=== PATIENT | male | born 2005 | race Caucasian/White ===

== ENCOUNTER 2025-03-07 20:38 | Inpatient (IN) | payer SELFPAY ==
[2025-03-07] VITALS (17 sets, daily range): BP systolic 75–126; BP diastolic 37–66; PULSE 40–73; RESP 13–27; TEMP 36.9–37.2; O2SAT 92–100; BMI 22.1
[2025-03-07] MEDS: SODIUM CHLORIDE 0.9% 1000 ML 1,000 ML 999 ML IV ×4 (20:40→22:35)
[2025-03-07] MEDS: DEXTROSE 50%-WATER INJ 50 ML SYRINGE IVP (20:42)
--- NOTE | 2025-03-07 20:42 | XR_ITS ---
Examination: AP chest single view Technique one AP portable semiupright chest single view Indications: Seizure today. Findings: Normal heart size. No aspiration pneumonia. Osseous structures are intact. Impression: No aspiration pneumonia
--- NOTE | 2025-03-07 20:42 | EKG_ITS ---
[facility] Test Date: 2025-03-07 Pat Name: JAKE MONTOYA Department: Room: - Gender: Male Lan Specialist: : 2005 Requested By: Arya Crespo Order Number: [id number] Reading MD: Arya Crespo Measurements Intervals [place] Rate: 56 P: 62 NM: 138 QRS: 73 QRSD: 79 T: 49 QT: 401 QTc: 390 Interpretive Statements SINUS BRADYCARDIA No previous ECG available for comparison /store/S0/[id number]/ecg/[id number].pdf
--- NOTE | 2025-03-07 20:48 | XR_ITS ---
Examination: CT brain head without contrast. 2-D sagittal coronal reconstructions Date and time of exam:March 07, TE thousand 25, 2116 hrs., Comparison September 02, 2017 Indications: Seizure today CTDI: vol (mGy):51.80 DLP: (mGycm):1061 Technique: Multiple CT axial sections of the brain have been obtained, 5 mm slice thickness. Contrast has not been administered. 2-D sagittal, coronal reconstructions have been obtained Low dose protocols were performed. One or more of the following dose reduction techniques were used; automated exposure control, adjustment of the mA and/or KV according to patient size, use of iterative reconstruction technique. Findings: No significant ventricular enlargement. Intra-axial or extra-axial hemorrhage density is not seen. No mass effect or midline shift Basal cisterns are not remarkable. Fourth ventricle is midline. Cranial vault intact. Impression: Negative for acute hemorrhage, mass effect or midline shift Consider brain MRI follow-up, pre and postcontrast, seizure protocol
[2025-03-07] MEDS: levETIRAcetam INJ 100 MG/ML VIAL 5ML 2000 MG IVP (20:53)
[2025-03-07] MEDS: ONDANSETRON INJ 2 MG/ML INJ 2 ML 4 MG IVP (20:53)
[2025-03-07 20:56] LABS: Collection Type, Urine Clean Catch; Squamous Epithelial Cell,Urine 0 /hpf (0-5)
[2025-03-07 20:58] LABS: Base Excess, Venous -4 (-3-3); O2 Saturation, Venous 89 % (96-97); PCO2, Venous 40 mmHg (36-56); PO2, Venous 58 mmHg (15-58); pH, Venous 7.34 (7.33-7.66)
--- NOTE | 2025-03-07 20:59 | PD.EDSEIZ ---
ED Seizures RME/HPI General Chief Complaint: Seizure Stated Complaint: SEIZURES Time Seen by Provider: 03/07/25 20:42 Arrival date/time: 03/07/25 20:38 RME / HPI RME / HPI Narrative: DR. CURTIS MAIN ED EVALUATION: 19 y/o male with no significant past medical history was admitted to hospital on 03/07/2025 after coming to the ED with chief complaints of witnessed seizures brought in by ambulance. Patient was postictal, tired and lethargic upon arrival, A&O x 3, significantly hypertensive BP 78/37, heart rate in low 30s, pads placed patient was given 3 L bolus wide open, blood pressure improved, patient at bedside denied any substance use/overdose however due to high clinical suspicion was given Narcan, loading dose Keppra given as well. EKG at bedside showed sinus bradycardia, also noted on custom protection officer. Later in detail history obtained from patient's , patient somewhat contributed to the history as well. Patient was at his normal state of health today this evening, but per patient's she heard a loud thump and went to check on him and found that he had hit his head and was having seizure-like activity. She mentioned that he had 3 episodes of seizure-like activity with lapses of 10 seconds in between and these episodes lasted altogether around 3 to 4 minutes. stated that patient was nonresponsive though verbalized understanding of her words by blinking his eyes, per patient he does not remember anything last thing that he remembers was walking and then just waking up laying down. Patient strongly denies taking any controlled medications, did mention that he smokes marijuana here and there, but otherwise no other history of illicit drug use, also reports using cannabis cream. Patient's did mention that the patient was possibly taking Xanax sporadically for his anxiety which is prescribed to his family, but patient denied this. Patient mentioned that he has been nauseated and vomiting for around a year now, but his last vomiting episode was around 3 days ago. States that he may have some ulcer disease likely, but he has not seen a physician for this or has been properly diagnosed and has been taking [id number] Pepcid. Per patient he has never had any episodes of seizures before. Patient denied having any suicidal or homicidal ideation at this time. Related Data Home Medications ?Medication ?Instructions ?Recorded ?Confirmed No Known Home Medications 09/02/17 03/08/25 Allergies Allergy/AdvReac Type Severity Reaction Status Date / Time No Known Allergies Allergy Verified 03/07/25 20:46 Review of Systems Review of Systems Systems Reviewed: All systems reviewed, normal except as documented Past Medical History Past Medical History PSYCHO/SOCIAL: Positive Recreational Drug Use Social History SMOKING STATUS: Current every day smoker Past Medical History Comments PMH COMMENT: PMH: None Surgical Hx: Facial reconstruction, cholecystectomy Social Hx: Admits smoking marijuana, denies any other illicit drugs (UTOX was positive for benzodiazepines), admits social drinking ED Exam Narrative Physical exam: GEN. APPEARANCE: The patient is alert awake oriented X-3 in no distress, lying down comfortably, does not look ill/toxic. Patient has good eye contact. Patient is cooperative. Appears lethargic/tired. VITALS: All vitals were reviewed and the pulse ox is 97% on room air which is normal according to my interpretation. HEENT: Normocephalic, atraumatic. Pupils are equal and reactive. Oral mucosa is moist. Patent Nares NECK: Supple, nontender, no thyromegaly, no meningismus, no JVD, no step offs CHEST: Symmetrical, atraumatic, and with equal expansion , Nontender on palpation no deformity and no crepitus. CARDIOVASCULAR: Heart bradycardic rhythm no murmur or gallop rub or extra beats. LUNGS: Clear to auscultation bilaterally with symmetrical chest rise. No laboring tachypnea or wheezing. No intercostal subcostal retraction. No rales and no rhonchi. ABDOMEN: Soft, flat, nontender to palpation, no guarding or rebound tenderness. There are no abnormal masses palpated. Active and normal bowel sounds. EXTREMITIES: Nontender. No edema. No cyanosis. Patient is able to move all 4 extremities well, with full ROM and good CSM. SKIN: Clammy and cool to touch, no jaundice or rashes noted. MUSCULOSKELETAL: No lubar or midline bony tenderness. There is no CVA tenderness. No paraspinal muscle spasm or tenderness. NEURO: Patient is MAYNARD x 4, Cranial nerves II through XII grossly intact. There is no focal neurologic deficits noted. GCS is 15, PNS and RADIOLOGY DIRECTOR appear grossly intact. PSYCHIATRIC: Patient is in normal mood and affect, cooperative, no SI or HI or hallucinations. Course Quality Measures none Orders Category Date Time Status Apply Pacer Pads NOW Care 03/07/25 20:44 Completed Bedside Blood Glucose NOW Care 03/07/25 20:52 Active Bedside COVID-19 Antigen Test NOW Care 03/07/25 20:40 Active Bedside Influenza A&B Antigen Test NOW Care 03/07/25 20:40 Completed COVID-19 Screening Questionnaire NOW Care 03/07/25 22:20 Active Filing And Polishing Supervisor Q4H START 00 Care 03/07/25 20:44 Active Catheter [Urinary Catheter] QS Care 03/07/25 20:43 Completed Decision to Admit X1 Care 03/07/25 22:20 Completed EKG (ED ONLY) *Do not use* NOW Care 03/07/25 20:42 Completed EKG (ED ONLY) *Do not use* NOW Care 03/07/25 22:19 Completed Saline [Insert IV] NOW Care 03/07/25 20:[address] head/brain wo con Stat Exams 03/07/25 20:48 Completed EKG (ED Only) Stat Exams 03/07/25 20:42 Draft EKG (ED Only) Stat Exams 03/07/25 22:19 Ordered XR chest 1V portable Stat Exams 03/07/25 20:42 Completed Acetaminophen Stat Lab 03/07/25 20:42 Completed Alcohol, Blood Medical Stat Lab 03/07/25 20:42 Completed BNP [B-Type Natriuretic Peptide] Stat Lab 03/07/25 20:42 Completed Beta Hydroxybutyrate Stat Lab 03/07/25 20:42 Completed Bilirubin,Direct Stat Lab 03/07/25 20:42 Completed CBC Stat Lab 03/07/25 20:42 Completed CK [Creatine Kinase] Stat Lab 03/07/25 20:42 Completed CMP [Comprehensive Metabolic Panel] Stat Lab 03/07/25 20:42 Completed D-Dimer Stat Lab 03/07/25 20:42 Completed Drug Screen,Urine Stat Lab 03/07/25 20:42 Completed INR [Prothrombin Time with INR] Stat Lab 03/07/25 20:42 Completed Lactate (Lactic Acid) Stat Lab 03/07/25 20:42 Completed Magnesium Stat Lab 03/07/25 20:42 Completed PTT [Partial Thromboplastin Time] Stat Lab 03/07/25 20:42 Completed Phosphorous Stat Lab 03/07/25 20:42 Completed Procalcitonin Stat Lab 03/07/25 20:42 Completed Salicylate Stat Lab 03/07/25 20:42 Completed Thyroid Stimulating Hormone Stat Lab 03/07/25 20:42 Completed Troponin I Stat Lab 03/07/25 20:42 Completed Urinalysis, C/S if Indicated Stat Lab 03/07/25 20:42 Completed VBG [Venous Blood Gas] Stat Lab 03/07/25 20:42 Completed Dextrose 50% Syr [D50w Syringe Abboject] Med 03/07/25 20:40 Discontinued 50 ml .ROUTE .STK-MED ONE Dextrose 50% Syr [D50w Syringe Abboject] Med 03/07/25 20:40 Discontinued 50 ml IVP X1 ONE NALOXONE INJ (Vial) [Narcan Inj (Vial)] Med 03/07/25 20:41 Discontinued 2 mg IV X1 ONE Nicotine Patch [Nicoderm Patch] Med 03/07/25 21:53 Discontinued 21 mg TOP X1 ONE Ondansetron Inj [Zofran Inj] Med 03/07/25 20:40 Discontinued 4 mg IVP X1 ONE POTASSIUM CHL 10% Liq 15 ML Med 03/07/25 21:33 Discontinued 40 meq PO X1 ONE Sodium Chloride 0.9% 1000 ml [Ns] 1,000 ml Med 03/07/25 20:40 Discontinued IV 999 mls/hr Sodium Chloride 0.9% 1000 ml [Ns] 1,000 ml Med 03/07/25 20:41 Discontinued IV 999 mls/hr Sodium Chloride 0.9% 1000 ml [Ns] 1,000 ml Med 03/07/25 20:42 Discontinued IV 999 mls/hr Sodium Chloride 0.9% 1000 ml [Ns] 1,000 ml Med 03/07/25 22:20 Discontinued IV 999 mls/hr flumazeniL [Romazicon Inj] Med 03/07/25 21:38 Discontinued 0.2 mg IVP X1 ONE levETIRAcetam INJ [Keppra Inj] Med 03/07/25 20:41 Discontinued 2,000 mg IVP X1 ONE Vital Signs Vital signs: Vital Signs Blood Pressure 78/37 L 03/07/25 20:39 Pulse Oximetry (%) 100 09/20/25 20:39 Seizure MDM Narrative MDM Narrative:: # Sinus bradycardia # Seizure episode 19-year-old male with no past medical history presented with seizure episode, there is suspicion of drug overdose EKG showed sinus bradycardia, pads were placed no atropine or pacing Patient's blood pressure improved with IV fluids, continues to remain bradycardic Workup showed urine drug screen positive for benzodiazepine, her nursing patient was not given Versed enroute Otherwise workup benign, lactic acidosis noted 9.0 Case discussed with hospitalist group patient will be admitted. Case discussed with Attending Physician Dr. Jacque Curtis MD Internal Medicine PGY-2 Disclaimer: This note was dictated by speech recognition. Minor errors in breakfast attendant may be present due to voice recognition software. Patient data External records reviewed:: [facility] previous records (No recent ED records available for review.) and EMS form Clinical information provided by:: patient and EMS Social determinants that could affect healthcare access:: none Patient has the following chronic illnesses:: Recreational Drug Use How is presenting disease/condition affected by chronic disease/condition?: exacerbated by Evaluation data The following diagnostics were reviewed and interpreted by me:: lab results, radiology exam(s) and EKG tracing(s) Lab and/or radiology exams considered but not ordered:: None Interpretation Summary: RADIOLOGY Chest X-Ray: Findings: Normal heart size. No aspiration pneumonia. Osseous structures are intact. Impression: No aspiration pneumonia Medications / Prescriptions Medications or Prescriptions considered but not ordered:: None Medication administrations:: Medication Administration History Atropine Sulfate (Atropine Sulf Inj 1 Mg/Ml Vial) 1 mg IVP Q5MIN PRN PRN Reason: Symptomatic bradycardia, HR<45 Stop: 04/06/25 22:59 Dextrose (Dextrose 50%-Water Inj 50 Ml Syringe) 25 ml IV Q15MIN PRN PRN Reason: BG 50-70 responsive npo pt Stop: 04/07/25 03:13 Dextrose (Dextrose 50%-Water Inj 50 Ml Syringe) 50 ml IV Q15MIN PRN PRN Reason: BG <50 OR BG <70 & pt unresponsive Stop: 04/07/25 03:13 Glucagon (Glucagon Inj 1 Mg Vial) 1 mg IVP X1 PRN PRN Reason: HR<45 or BG<70 Stop: 04/07/25 02:36 Last Admin: 03/08/25 03:09 Dose: 1 mg Documented By: REINIER Comments: hr of 41 Glucagon (Glucagon Inj 1 Mg Vial) 1 mg IM Q15MIN PRN PRN Reason: BG <70, and no IV access Metoclopramide HCl (Metoclopramide Inj 5 Mg/Ml Vial 2 Ml) 10 mg IVP Q6H PRN; Protocol PRN Reason: NAUSEA OR VOMITING Stop: 04/06/25 22:47 Midazolam HCl (Midazolam Inj 1 Mg/Ml Vial 2 Ml) 1 mg IVP Q5MIN PRN PRN Reason: SEIZURES Stop: 03/12/25 22:56 Pantoprazole Sodium (Pantoprazole Inj 40 Mg Vial) 40 mg IVP QDAY MARI Stop: 04/06/25 22:54 Last Admin: 03/08/25 08:13 Dose: 40 mg Documented By: Admin: 03/07/25 23:51 Dose: 40 mg Documented By: REINIER Discontinued Medications Dextrose (Dextrose 50%-Water Inj 50 Ml Syringe) 50 ml IVP X1 ONE Stop: 03/07/25 20:41 Last Admin: 03/07/25 20:42 Dose: 50 ml Documented By: GALEN Dextrose (Dextrose 50%-Water Inj 50 Ml Syringe) Confirm Administered Dose 50 ml .ROUTE .STK-MED ONE Stop: 03/07/25 20:41 Last Admin: 03/07/25 21:00 Dose: Not Given Documented By: GALEN Non-Admin Reason: Override Medication Flumazenil (Flumazenil Inj 0.1 Mg/Ml Vial 10 Ml) 0.2 mg IVP X1 ONE Stop: 03/07/25 21:39 Last Admin: 03/07/25 21:43 Dose: 0.2 mg Documented By: BD Sodium Chloride (Ns) 1,000 mls @ 999 mls/hr IV .Q1H1M ONE Stop: 03/07/25 21:40 Last Infusion: 03/07/25 21:53 Dose: Infused Documented By: Admin: 03/07/25 20:40 Dose: 999 mls/hr Documented By: BD Sodium Chloride (Ns) 1,000 mls @ 999 mls/hr IV .Q1H1M ONE Stop: 03/07/25 21:41 Last Infusion: 03/07/25 21:41 Dose: Infused Documented By: Admin: 03/07/25 20:40 Dose: 999 mls/hr Documented By: BD Sodium Chloride (Ns) 1,000 mls @ 999 mls/hr IV .Q1H1M ONE Stop: 03/07/25 21:42 Last Infusion: 03/07/25 21:41 Dose: Infused Documented By: Admin: 03/07/25 21:06 Dose: 999 mls/hr Documented By: BD Sodium Chloride (Ns) 1,000 mls @ 999 mls/hr IV .Q1H1M ONE Stop: 03/07/25 23:20 Last Infusion: 03/07/25 23:54 Dose: Infused Documented By: Admin: 03/07/25 22:35 Dose: 999 mls/hr Documented By: BD Potassium Phosphate (Pot Phos 15 Mmol In Ns 250 Ml) 15 mmol in 250 mls @ 62.5 mls/hr IV Q4H MARI Stop: 03/08/25 06:53 Last Admin: 03/08/25 03:55 Dose: 62.5 mls/hr Documented By: Infusion: 03/08/25 03:51 Dose: Infused Documented By: Admin: 03/07/25 23:51 Dose: 62.5 mls/hr Documented By: REINIER Potassium Chloride (Kcl Ivpb) 10 meq in 100 mls @ 100 mls/hr IV Q1H MARI Stop: 03/08/25 01:07 Last Admin: 03/08/25 01:06 Dose: 100 mls/hr Documented By: Infusion: 03/08/25 00:51 Dose: Infused Documented By: Admin: 03/07/25 23:51 Dose: 100 mls/hr Documented By: [facility] Calcium Chloride 10 ml/ (Dextrose) 110 mls @ 110 mls/hr IV X1 ONE Stop: 03/08/25 01:26 Last Admin: 03/08/25 01:48 Dose: 110 mls/hr Documented By: [facility] Dextrose/Sodium Chloride (D5-Ns) 500 mls @ 125 mls/hr IV .Q4H MARI Stop: 04/07/25 00:59 Last Admin: 03/08/25 02:22 Dose: Not Given Documented By: [facility] Non-Admin Reason: Discontinued Dextrose (D5w) 500 mls @ 125 mls/hr IV .Q4H [facility] Stop: 04/07/25 01:44 Last Admin: 03/08/25 07:22 Dose: Not Given Documented By: EDGAR Non-Admin Reason: Cancelled by Provider Admin: 03/08/25 01:48 Dose: 125 mls/hr Documented By: REINIER Magnesium Sulfate (Magnesium Sulfate Ivpb) 2 gm in 50 mls @ 25 mls/hr IV X1 ONE Stop: 03/08/25 08:52 Last Admin: 03/08/25 08:10 Dose: 25 mls/hr Documented By: EDGAR Dextrose (D5w) 1,000 mls @ 125 mls/hr IV .Q8H [facility] Stop: 03/08/25 15:29 Last Infusion: 03/08/25 10:00 Dose: 0 mls/hr Documented By: Admin: 03/08/25 07:23 Dose: 125 mls/hr Documented By: EDGAR Levetiracetam (Levetiracetam Inj 100 Mg/Ml Vial 5ml) 2,000 mg IVP X1 ONE Stop: 03/07/25 20:42 Last Admin: 03/07/25 20:53 Dose: 2,000 mg Documented By: BD Midazolam HCl (Midazolam Inj 1 Mg/Ml Vial 2 Ml) 1 mg IVP Q1HR PRN PRN Reason: SEIZURES Stop: 03/12/25 22:56 Naloxone HCl (Naloxone Inj 0.4 Mg/Ml Vial) 2 mg IV X1 ONE Stop: 03/07/25 20:42 Last Admin: 03/07/25 20:53 Dose: 2 mg Documented By: GALEN Co-signed By: HENRRY Nicotine (Nicotine Patch 21 Mg/24 Hr Patch.Td24) 21 mg TOP X1 ONE Stop: 03/07/25 21:54 Last Admin: 03/07/25 22:20 Dose: 21 mg Documented By: BD Ondansetron HCl (Ondansetron Inj 2 Mg/Ml Inj 2 Ml) 4 mg IVP X1 ONE; Protocol Stop: 03/07/25 20:41 Last Admin: 03/07/25 20:53 Dose: 4 mg Documented By: BD Potassium Chloride (Potassium Chloride 10% 20 Meq/15 Ml Udc) 40 meq PO X1 ONE Stop: 03/07/25 21:34 Last Admin: 03/07/25 21:49 Dose: 40 meq Documented By: BD See above if any. Consultations Consultation(s) initiated? (list below): Yes Consultation #1 (Physician, Specialty, Details): Hospitalist made aware of the patient?s HPI, PMHx, lab and/or radiology results. Discussed treatment plan. Accepts patient for admission. Diagnosis Seizure Differential Diagnosis: intractable seizure disorder, focal seizure, generalized seizure, epileptic seizure and status epilepticus Most likely diagnosis given after review of the tests above:: Sinus bradycardia, Suspected drug overdose, Seizure Episode Admission Indicated Admission indicated?: indicated Explain why admission is indicated or not indicated:: Sinus bradycardia, Suspected drug overdose, Seizure Episode Admission Request Was there a request for admission?: Yes Admission Attestation Admission request attestation: Discussed case with Dr Abraham from Hospitalist service regarding admission. Discussed patients ED course, exam findings, labs, and radiology results. The Hospitalist agrees to accept the patient for admission. Disposition Plan Disposition Plan: Admit Discharge Plan Plan Patient Disposition: Admit Acute Care w/in Hospital Problem List Clinical Impression: Sinus bradycardia, Suspected drug overdose, Seizure
[2025-03-07 21:01] LABS: Basophils # (Auto) 0.1 Thou/mm3 (0.0-0.2); Basophils % (Auto) 1 % (0-2.5); Eosinophils # (Auto) 0.2 Thou/mm3 (0.0-0.5); Eosinophils % (Auto) 1 % (0-10); Hematocrit 41.6 % (41.0-53.0); Hemoglobin 14.8 g/dL (13.5-16.0); Immature Granulocytes Auto 0.03 Thou/mm3 (0.00-0.00); Lactate (Lactic Acid) 9.0 mMol/L (0.4-2.0); Lymphocytes # (Auto) 4.0 Thou/mm3 (1.0-4.8); Lymphocytes % (Auto) 32 % (10-50); Mean Corpuscular HGB Conc 35.6 g/dl (31.0-37.0); Mean Corpuscular Hemoglobin 31.6 pg (25.0-35.0); Mean Corpuscular Volume 89 fL (80-100); Monocytes # (Auto) 0.8 Thou/mm3 (0.0-0.8); Monocytes % (Auto) 7 % (0-12); Neutrophils # (Auto) 7.3 Thou/mm3 (1.8-7.7); Neutrophils % (Auto) 59 % (37-80); Nucleated Red Blood Cell # 0.00 Thou/mm3 (0.00-0.00); Nucleated Red Blood Cell % 0 /100 WBC (0); Platelet Count 270 Thou/mm3 (140-440); RDW Standard Deviation 41.1 fL (35.1-43.9); Red Blood Count 4.69 Miln/mm3 (4.50-5.90); White Blood Count 12.4 Thou/mm3 (3.8-10.6)
[2025-03-07 21:03] LABS: Bilirubin,Urine Negative (Negative); Blood,Urine Trace (Negative); Clarity,Urine Clear (Clear/Hazy); Color,Urine Lt-Yellow (Lt Yel-Yel); Culture Indicated,Urine Not Indicated; Glucose, Urine Negative (Negative); Ketones,Urine Negative (Negative); Leukocyte Esterase,Urine Negative (Negative); Nitrite,Urine Negative (Negative); PH,Urine 6.5 (5.0-7.0); Protein,Urine Negative (Neg - Trace); RBC,Urine 1 /hpf (0-3); Specific Gravity,Urine 1.019 (1.001-1.035); Urobilinogen,Urine Negative mg/dL (0.0-1.0); WBC,Urine < 1 /hpf (0-5)
[2025-03-07 21:05] LABS: Beta Hydroxybutyrate 0.1 mmol/L (<0.6)
--- NOTE | 2025-03-07 21:06 | PC.RT ---
abg attempted one time unsuccessful per pt refusing to let another RT or DR. panchal retry, abg was cancels per DR. Panchal.
[2025-03-07 21:18] LABS: INR 1.1 (0.9-1.3); Partial Thromboplastin Time 21.5 Seconds (22.0-36.0); Prothrombin Time 11.7 Seconds (9.0-12.2)
[2025-03-07 21:31] LABS: Acetaminophen < 2.0 mcg/mL (10.0-20.0); Alanine Aminotransferase 10 U/L (10-49); Albumin, Serum 5.0 gm/dL (3.5-5.0); Albumin/Globulin Ratio 2.2 (1.2-2.2); Alcohol, Blood Medical < 3.0 mg/dL (0-10.0); Alkaline Phosphatase 76 U/L (46-116); Amphetamine/Methamp Scrn,U Negative (Negative); Anion Gap 16 (7-16); Aspartate Amino Transferase 16 U/L (0-34); BUN/Creatinine Ratio 8 Ratio (12-20); Barbiturate Screen,Urine Negative (Negative); Benzodiazepines Screen,Urine Positive (Negative); Benzoylecgonine Screen, Ur Negative (Negative); Bilirubin,Direct 0.3 mg/dL (0.0-0.3); Bilirubin,Total 1.0 mg/dL (0.3-1.2); Blood Urea Nitrogen 7 mg/dL (9-23); Calcium 9.6 mg/dL (8.3-10.6); Calcium (Corrected) 9.6 mg/dL (8.5-10.1); Carbon Dioxide 21.7 mMol/L (20.0-31.0); Chloride 102 mMol/L (98-107); Creatine Kinase 81 U/L (34-171); Creatinine (Component) 0.9 mg/dL (0.6-1.3); Fentanyl Screen,Urine Negative (Negative); Globulin 2.3 gm/dL (2.3-3.5); Glucose 100 mg/dL (74-106); Magnesium 2.1 mg/dL (1.6-2.6); Opiate Screen,Urine Negative (Negative); Osmolality,Calculated 277 (275-295); Phosphorous 1.8 mg/dL (2.4-5.1); Potassium 3.0 mMol/L (3.4-5.1); Procalcitonin 0.04 ng/ml (0.0-0.49); Salicylate < 3.0 mg/dL; Sodium 140 mMol/L (136-145); THC Screen,Urine Positive (Negative); Thyroid Stimulating Hormone 4.13 uIU/mL (0.55-4.78); Total Protein 7.3 gm/dL (5.7-8.2); Troponin I < 0.002 ng/mL (0.0-0.045); eGFR > 60 See Note
--- NOTE | 2025-03-07 21:35 | PC.NURSE ---
Addendum entered by Julia Campos RN 03/09/25 00:56: charted in error checked with ems pt did not get medication in route. Original Note: pt is positive for benzo verified with ems hollie stated medication given in route
[2025-03-07] MEDS: FLUMAZENIL INJ 0.1 MG/ML VIAL 10 ML 0.2 MG IVP (21:43)
[2025-03-07 21:44] LABS: D-Dimer < 250 ng/mL (<600)
[2025-03-07 21:45] LABS: B-Type Natriuretic Peptide 22 pg/mL (0-100)
[2025-03-07] MEDS: POTASSIUM CHLORIDE 10% 20 MEQ/15 ML UDC 40 MEQ PO (21:49)
[2025-03-07] MEDS: NICOTINE PATCH 21 MG/24 HR PATCH.TD24 TOP (22:20)
--- NOTE | 2025-03-07 23:04 | ESHP_ITS ---
Documentation for date of: 03/07/25 HPI History of Present Illness Chief complaint: Seizure like activity History of present illness: 19-year-old male with no relevant past medical history was admitted to hospital on 03/07/2025 after coming to the ED with chief complaints of witnessed seizures brought in by ambulance. Patient was postictal upon arrival and patient is was at bedside help provide history and upon assessment patient was also able to provide some history. Patient was at his normal state of health today this evening, but per patient's she heard a loud thump and went to check on him and found that he had hit his head and was having seizure-like activity. She mentioned that he had 3 episodes of seizure-like activity with lapses of 10 seconds in between and these episodes lasted altogether around 3 to 4 minutes. Patient's stated that he was also confused after waking up, but that she had to do a sternal rub in order to wake him up as he was not breathing adequately and he was a little bit purpleish in his lips. Per patient he does not remember anything last thing that he remembers was walking and then just waking up laying down. Patient denied taking any controlled medications, did not mention that he smokes marijuana here and there, but otherwise no other history of illicit drug use. Patient's did mention that the patient was taking Xanax sporadically for his anxiety, but patient denied this. Patient's UTOX did come back positive for benzodiazepines. He mentioned that he has been under a lot of stress and that lately he has not been taking care of himself and has not been eating well. He mentioned that he has been nauseated and vomiting for around a year now, but his last vomiting episode was around 3 days ago. States that he may have some ulcer disease likely, but he has not seen a physician for this or has been properly diagnosed and has been taking [id number] Pepcid. Per patient he has never had any episodes of seizures before. Patient denied having any suicidal or homicidal ideation at this time. He stated that he did not have the guts, but also denied ever thinking about harming himself. Patient was bradycardic while en route to the ED and in the ED with a heart rate in the 30s, but was not given any atropine at any time. Patient also did not have any other further seizure-like tearing and was not giving any benzodiazepines. ED course: Initially came in bradycardic and hypotensive, but afebrile. Initial labs were relevant for leukocytosis likely reactive, VBG WNL, hypokalemia, lactic acidosis, hypophosphatemia, and UTOX was positive for benzodiazepines and marijuana. Initial head CT was unremarkable and chest x-ray was also unremarkable. Patient did have an EKG which showed sinus bradycardia. Got 4 L of IV fluids in the ED as well as flumenazil 0.2 mg x 1 on loading dose of Keppra and naloxone x 1. Patient was also hypoglycemic requiring dextrose x 1 PMH: None Surgical Hx: Facial reconstruction, cholecystectomy Social Hx: Admits smoking marijuana, denies any other illicit drugs (UTOX was positive for benzodiazepines), admits social drinking Review of Systems Review of Systems Narrative Review of Systems: Constitutional: Denies sweats, Denies weight loss/gain, Denies fever, Denies chills. HEENT: Denies hearing loss, Denies ear pain, Denies postnasal drip, Denies double vision, Denies blurry vision. Respiratory: Denies shortness of breath, Denies cough, Denies wheezing. Cardiovascular: Denies chest pain, Denies palpitations, Denies sudden loss of consciousness. GI: Denies blood in stool, Admits constipation, Denies abdominal pain, Denies difficulty swallowing, Admits nausea and vomit. : Denies urinary incontinence, Denies pain while urinating, Denies increased urinary frequency. MSK: Denies joint pain, Denies joint swelling, Denies numbness. Skin: Denies rash, Denies itching, Denies easy bruising. Neuro: Denies headaches, Denies dizziness, Admits seizures. Past Medical History Past Medical History Comments PMH COMMENT: PMH: None Surgical Hx: Facial reconstruction, cholecystectomy Social Hx: Admits smoking marijuana, denies any other illicit drugs (UTOX was positive for benzodiazepines), admits social drinking Exam Vital Signs Temp Pulse Resp BP Pulse Ox O2 Del Method O2 Flow Rate 98.9 F 60 22 H 107/61 97 Room Air 5 03/07/25 22:00 03/07/25 22:30 03/07/25 22:30 03/07/25 22:30 03/07/25 22:30 03/07/25 22:00 03/07/25 20:44 Narrative Exam Gen: A&O X 3, NAD tired appearing HEENT: NCAT, EOMI, Pupils reactive MARY, but dilated, not icteric. External ears normal. No rhinorrhea. Dry mucous membranes. Neck: Supple, full range of motion, no observable masses, No meningeal sign. Lungs: No Respiratory distress, clear bilateral. CV: bradycardic, no murmurs appreciated Abdomen: Soft, nondistended, No rebound tenderness. MSK: No joint swelling, no redness, peripheral pulses presents, lumbar with no edema. Skin: No rashes, petechiae, lesions. Neuro: No focal neurological deficits appreciated, sensory and motor intact. Psych: Cooperative Results: Labs 03/08/25 13:51 03/08/25 05:00 Labs: Short CBC 03/07/25 Range/Units 20:42 WBC 12.4 H (3.8-10.6) Thou/mm3 Hgb 14.8 (13.5-16.0) g/dL Hct 41.6 (41.0-53.0) % Plt Count 270 (140-440) Thou/mm3 BMP 03/07/25 20:42 Sodium 140 Potassium 3.0 L Chloride 102 Carbon Dioxide 21.7 BUN 7 L Creatinine 0.9 Glucose 100 Calcium 9.6 Cardiac Enzymes 03/07/25 Range/Units 20:42 Total Creatine Kinase 81 (34-171) U/L Troponin I < 0.002 (0.0-0.045) ng/mL Liver Function 03/07/25 Range/Units 20:42 Total Bilirubin 1.0 (0.3-1.2) mg/dL Direct Bilirubin 0.3 (0.0-0.3) mg/dL AST 16 (0-34) U/L ALT 10 (10-49) U/L Alkaline Phosphatase 76 (46-116) U/L Albumin 5.0 (3.5-5.0) gm/dL Urine 03/07/25 Range/Units 20:42 Urine Color Lt-Yellow (Lt Yel-Yel) Urine Clarity Clear (Clear/Hazy) Urine pH 6.5 (5.0-7.0) Ur Specific [place] 1.019 (1.001-1.035) Urine Protein Negative (Neg - Trace) Urine Glucose (UA) Negative (Negative) ABG Interpretation ABG results: 03/07/25 20:42 VBG pH 7.34 VBG pCO2 40 VBG pO2 58 VBG Base Excess -4 L Quality Measures Quality Measures VTE prophylaxis Medications Home Medications and Allergies Home Medications ?Medication ?Instructions ?Recorded ?Confirmed ?Type No Known Home Medications 09/02/1702/17 History Allergies Allergy/AdvReac Type Severity Reaction Status Date / Time No Known Allergies Allergy Verified 03/07/25 20:46 Visit Medications Atropine Sulfate (Atropine Sulf Inj 1 Mg/Ml Vial) 1 mg IVP Q5MIN PRN PRN Reason: Symptomatic bradycardia, HR<45 Stop: 04/06/25 22:59 Sodium Chloride (Ns) 1,000 mls @ 999 mls/hr IV .Q1H1M ONE Stop: 03/07/25 23:20 Last Admin: 03/07/25 22:35 Dose: 999 mls/hr Potassium Phosphate (Pot Phos 15 Mmol In Ns 250 Ml) 15 mmol in 250 mls @ 62.5 mls/hr IV Q4H MARI Stop: 03/08/25 06:53 Metoclopramide HCl (Metoclopramide Inj 5 Mg/Ml Vial 2 Ml) 10 mg IVP Q6H PRN; Protocol PRN Reason: NAUSEA OR VOMITING Stop: 04/06/25 22:47 Midazolam HCl (Midazolam Inj 1 Mg/Ml Vial 2 Ml) 1 mg IVP Q5MIN PRN PRN Reason: SEIZURES Stop: 03/12/25 22:56 Pantoprazole Sodium (Pantoprazole Inj 40 Mg Vial) 40 mg IVP QDAY MARI Stop: 04/06/25 22:54 Discontinued Medications Dextrose (Dextrose 50%-Water Inj 50 Ml Syringe) 50 ml IVP X1 ONE Stop: 03/07/25 20:41 Last Admin: 03/07/25 20:42 Dose: 50 ml Flumazenil (Flumazenil Inj 0.1 Mg/Ml Vial 10 Ml) 0.2 mg IVP X1 ONE Stop: 03/07/25 21:39 Last Admin: 03/07/25 21:43 Dose: 0.2 mg Sodium Chloride (Ns) 1,000 mls @ 999 mls/hr IV .Q1H1M ONE Stop: 03/07/25 21:40 Last Infusion: 03/07/25 21:53 Dose: Infused Sodium Chloride (Ns) 1,000 mls @ 999 mls/hr IV .Q1H1M ONE Stop: 03/07/25 21:41 Last Infusion: 03/07/25 21:41 Dose: Infused Sodium Chloride (Ns) 1,000 mls @ 999 mls/hr IV .Q1H1M ONE Stop: 03/07/25 21:42 Last Infusion: 03/07/25 21:41 Dose: Infused Levetiracetam (Levetiracetam Inj 100 Mg/Ml Vial 5ml) 2,000 mg IVP X1 ONE Stop: 03/07/25 20:42 Last Admin: 03/07/25 20:53 Dose: 2,000 mg Midazolam HCl (Midazolam Inj 1 Mg/Ml Vial 2 Ml) 1 mg IVP Q1HR PRN PRN Reason: SEIZURES Stop: 03/12/25 22:56 Naloxone HCl (Naloxone Inj 0.4 Mg/Ml Vial) 2 mg IV X1 ONE Stop: 03/07/25 20:42 Last Admin: 03/07/25 20:53 Dose: 2 mg Nicotine (Nicotine Patch 21 Mg/24 Hr Patch.Td24) 21 mg TOP X1 ONE Stop: 03/07/25 21:54 Last Admin: 03/07/25 22:20 Dose: 21 mg Ondansetron HCl (Ondansetron Inj 2 Mg/Ml Inj 2 Ml) 4 mg IVP X1 ONE; Protocol Stop: 03/07/25 20:41 Last Admin: 03/07/25 20:53 Dose: 4 mg Potassium Chloride (Potassium Chloride 10% 20 Meq/15 Ml Udc) 40 meq PO X1 ONE Stop: 03/07/25 21:34 Last Admin: 03/07/25 21:49 Dose: 40 meq Assessment & Plan Plan 19-year-old male with no relevant past medical history was admitted to hospital on 03/07/2025 for seizure-like activity. #Seizure-like activity #Electrolyte imbalance #Hypokalemia #Hypophosphatemia #Lactic acidosis #Beta abby overdose? #Benzodiazepine Overdose? Patient came in initially with witnessed episodes of seizure-like activity by . Patient with his postictal upon arrival, on my assessment was able to provide some history and was AO x 3. Patient's labs showed potassium of 3, lactic acid of 9, and phosphorus of 1.8 Seizure-like activity could have been caused due to electrolyte imbalance in the setting of nausea and vomiting with poor oral intake Patient's UTOX show benzodiazepines, however over those less likely to have caused seizures. Got loading dose of Keppra and flumazenil 0.20 mg as well as naloxone in the ED Repeat LA 0.9 Plan: Midazolam 1 mg IV every 5 minutes as needed for seizure K-Phos and IV potassium ordered EEG Will hold off on antiseizure medications given it was a first-time seizure for the patient, follow-up with neurology Neurology consulted, appreciate recommendations #Bradycardia #Hypotension Patient came in with a heart rate in the 30s and BP 70/37 Patient did not feel any palpitations or chest pain during this episode of seizure-like activity Patient's initial EKG showed sinus bradycardia. Patient did not get any atropine [place] or in the ED Plan: Atropine 1 mg IV every 5 minutes as needed for symptomatic bradycardia with heart rate less than 45 EKG in the a.m. Glucagon prn Start insulin and D10 prn for bradycardia #Hypoglycemia Patient's blood sugar was 52 upon arrival to the ED Patient got 1 amp of D50 in the ED Patient's blood sugar was 130 afterwards and then went down to 90 again Plan: D5W and patient will require blood glucose checks every hour therefore will be transferred to the ICU. Glucagon 1 mg IV as needed #Intractable nausea vomiting Patient has been having intractable nausea and vomiting for the past year, has not been worked up as an outpatient as he had not seen a primary care physician Could consider possible gastritis versus PUD Plan: Reglan as needed Consider GI workup if symptoms do not improve Patient symptoms of hypoglycemia, hypertension, bradycardia, and seizures fit the picture of possible beta-abby versus calcium channel abby overdose, but patient denies taking any of these. Patient also denies having any suicidal or homicidal ideation, but given high suspicion given clinical picture of the patient will start with suicide precautions at this time. Spoke with poison control who stated that this time patient is symptoms could meet beta-abby overdose picture and would require to monitor blood sugars every hour for the next 6 to 8 hours and once patient is off dextrose to trend blood sugars to look out for any recurrent hypoglycemic episodes. Disposition: Patient admitted to telemetry for seizure, but will be upgraded to ICU for further management of possible Beta-abby overdose. Diet: NPO GI prophylaxis: pronotix DVT prophylaxis: SCDS Code: Full Case disclosed with Attending Dr. Jaime Carter PGY2 Disclaimer: Even though this this note was dictated by speech recognition and even though it was carefully revised there may still be minor errors in network support analyst due to voice recognition software. Attending Provider Attestation/Addendum After examination of the patient and review of the clinical data I feel that this patient needs admission to the hospital for further treatment/evaluation. Plan of care discussed with patient and is in agreement. I Yumiko Sandoval MD, attest that I was physically present for [place] portions of evaluation, and examined patient, labs and imagings and plan of care were discussed with IM residents team, and I agree with the findings and plans documented above.
[2025-03-07] MEDS: POT PHOS 15 mMol in NS 250 ML 15 MMOL/250 ML BAG 62.5 MMOL IV (23:51)
[2025-03-07] MEDS: POTASSIUM CHL 10 mEq IVPB 10 MEQ/100 ML BAG 100 MEQ IV (23:51)
[2025-03-07 23:54] LABS: Reflex Lactate? Y
[2025-03-08] VITALS (28 sets, daily range): BP systolic 94–130; BP diastolic 42–70; PULSE 38–87; RESP 8–97; TEMP 35.7–37.1; O2SAT 97–99; BMI 22.4
[2025-03-08] MEDS: POTASSIUM CHL 10 mEq IVPB 10 MEQ/100 ML BAG 100 MEQ IV (01:06)
--- NOTE | 2025-03-08 01:32 | RESP.EEG ---
AT 0100 PT REFUSED EEG. PT CURRENTLY UNDER SUICIDE PROTOCOL. RN AWARE. RT WILL ATTEMPT EEG TOMORROW MORNING.
[2025-03-08 01:46] LABS: Lactic Acid, 3 HR 0.9 mMol/L (0.4-2.0)
[2025-03-08] MEDS: Calcium Chloride 10% Abboject 10 ML in DEXTROSE 5%-WATER 100 ML 110 ML IV (01:48)
[2025-03-08] MEDS: DEXTROSE 5%-WATER 500 ML 125 ML IV (01:48)
[2025-03-08] MEDS: GLUCAGON INJ 1 MG VIAL IVP (03:09)
--- NOTE | 2025-03-08 03:24 | PD.RESCONSUL ---
HPI Data of Consult Requesting Physician: Yumiko Sandoval MD Admitting Provider: Yumiko Sandoval MD Attending Provider: Yumiko Sandoval MD Primary Care Provider: Physician No Primary/Family Consult Narrative History of present illness: 19-year-old male with no relevant past medical history was admitted to hospital on 03/07/2025 after coming to the ED with chief complaints of witnessed seizures brought in by ambulance. Patient was postictal upon arrival and patient is was at bedside help provide history and upon assessment patient was also able to provide some history. Patient was at his normal state of health today this evening, but per patient's she heard a loud thump and went to check on him and found that he had hit his head and was having seizure-like activity. She mentioned that he had 3 episodes of seizure-like activity with lapses of 10 seconds in between and these episodes lasted altogether around 3 to 4 minutes. Patient's stated that he was also confused after waking up, but that she had to do a sternal rub in order to wake him up as he was not breathing adequately and he was a little bit purpleish in his lips. Per patient he does not remember anything last thing that he remembers was walking and then just waking up laying down. Patient denied taking any controlled medications, did not mention that he smokes marijuana here and there, but otherwise no other history of illicit drug use. Patient's did mention that the patient was taking Xanax sporadically for his anxiety, but patient denied this. Patient's UTOX did come back positive for benzodiazepines -Which was NEVER given by EMS nor at ED-. He mentioned that he has been under a lot of stress and that lately he has not been taking care of himself and has not been eating well. He mentioned that he has been nauseated and vomiting for around a year now, but his last vomiting episode was around 3 days ago. States that he may have some ulcer disease likely, but he has not seen a physician for this or has been properly diagnosed and has been taking [id number] Pepcid. Per patient he has never had any episodes of seizures before. Patient denied having any suicidal or homicidal ideation at this time. He stated that he did not have the guts, but also denied ever thinking about harming himself. Patient was bradycardic and hypotensive while en route to the ED and in the ED with a heart rate in the lower 30s, with BP of 71/32, but was not given any atropine at any time. Patient also did not have any other further seizure-like activity and was not giving any benzodiazepines. ED course: Initially came in bradycardic and hypotensive, but afebrile. Initial labs were relevant for leukocytosis likely reactive, VBG WNL, hypokalemia, lactic acidosis, hypophosphatemia, and UTOX was positive for benzodiazepines and marijuana. Initial head CT was unremarkable and chest x-ray was also unremarkable. Patient did have an EKG which showed sinus bradycardia. Got 4 L of IV fluids in the ED as well as Flumenazil 0.2 mg x 1, Narcan x 1 and a loading dose of Keppra. Patient was also hypoglycemic requiring dextrose x 1 PMH: None Surgical Hx: Facial reconstruction, cholecystectomy Social Hx: Admits smoking marijuana, denies any other illicit drugs (UTOX was positive for benzodiazepines), admits social drinking Patient symptoms of hypoglycemia, hypertension, bradycardia, and seizures fit the picture of possible beta-abby versus calcium channel abby overdose, but patient denies taking any of these. Patient also denies having any suicidal or homicidal ideation, but given high suspicion given clinical picture of the patient will start with suicide precautions at this time. Internal medicine team spoke with poison control who stated that this time patient is symptoms could meet beta-abby overdose picture and would require to monitor blood sugars every hour for the next 6 to 8 hours and once patient is off dextrose to trend blood sugars to look out for any recurrent hypoglycemic episodes. Patient will be upgraded to ICU for close monitoring and frequent glucose check. cc:: cc: Yumiko Sandoval MD Review of Systems Review of Systems Systems Reviewed: All systems reviewed, normal except as documented Exam Vital Signs Temp Pulse Resp BP Pulse Ox O2 Del Method O2 Flow Rate 98.8 F 59 L 20 103/49 L 97 Room Air 5 03/08/25 00:00 03/08/25 00:00 03/08/25 00:00 03/08/25 00:00 03/08/25 00:00 03/08/25 00:00 03/07/25 20:44 Narrative Exam Gen: A&O X 3, NAD tired appearing HEENT: NCAT, EOMI, Pupils reactive MARY, but dilated, not icteric. External ears normal. No rhinorrhea. Dry mucous membranes. Neck: Supple, full range of motion, no observable masses, No meningeal sign. Lungs: No Respiratory distress, clear bilateral. CV: bradycardic, no murmurs appreciated Abdomen: Soft, nondistended, No rebound tenderness. MSK: No joint swelling, no redness, peripheral pulses presents Skin: No rashes, petechiae, lesions. Neuro: No focal neurological deficits appreciated, sensory and motor intact. Results Labs 03/08/25 13:51 03/08/25 05:00 Labs: Short CBC 03/07/25 Range/Units 20:42 WBC 12.4 H (3.8-10.6) Thou/mm3 Hgb 14.8 (13.5-16.0) g/dL Hct 41.6 (41.0-53.0) % Plt Count 270 (140-440) Thou/mm3 BMP 03/07/25 20:42 Sodium 140 Potassium 3.0 L Chloride 102 Carbon Dioxide 21.7 BUN 7 L Creatinine 0.9 Glucose 100 Calcium 9.6 Cardiac Enzymes 03/07/25 Range/Units 20:42 Total Creatine Kinase 81 (34-171) U/L Troponin I < 0.002 (0.0-0.045) ng/mL Liver Function 03/07/25 Range/Units 20:42 Total Bilirubin 1.0 (0.3-1.2) mg/dL Direct Bilirubin 0.3 (0.0-0.3) mg/dL AST 16 (0-34) U/L ALT 10 (10-49) U/L Alkaline Phosphatase 76 (46-116) U/L Albumin 5.0 (3.5-5.0) gm/dL Urine 03/07/25 Range/Units 20:42 Urine Color Lt-Yellow (Lt Yel-Yel) Urine Clarity Clear (Clear/Hazy) Urine pH 6.5 (5.0-7.0) Ur Specific [place] 1.019 (1.001-1.035) Urine Protein Negative (Neg - Trace) Urine Glucose (UA) Negative (Negative) ABG Interpretation ABG results: 03/07/25 20:42 VBG pH 7.34 VBG pCO2 40 VBG pO2 58 VBG Base Excess -4 L Quality Measures Quality Measures VTE prophylaxis Medications Home Medications and Allergies Home Medications ?Medication ?Instructions ?Recorded ?Confirmed ?Type No Known Home Medications 09/02/17 03/08/25 History Allergies Allergy/AdvReac Type Severity Reaction Status Date / Time No Known Allergies Allergy Verified 03/07/25 20:46 Visit Medications Atropine Sulfate (Atropine Sulf Inj 1 Mg/Ml Vial) 1 mg IVP Q5MIN PRN PRN Reason: Symptomatic bradycardia, HR<45 Stop: 04/06/25 22:59 Dextrose (Dextrose 50%-Water Inj 50 Ml Syringe) 25 ml IV Q15MIN PRN PRN Reason: BG 50-70 responsive npo pt Stop: 04/07/25 03:13 Dextrose (Dextrose 50%-Water Inj 50 Ml Syringe) 50 ml IV Q15MIN PRN PRN Reason: BG <50 OR BG <70 & pt unresponsive Stop: 04/07/25 03:13 Glucagon (Glucagon Inj 1 Mg Vial) 1 mg IVP X1 PRN PRN Reason: HR<45 or BG<70 Stop: 04/07/25 02:36 Last Admin: 03/08/25 03:09 Dose: 1 mg Glucagon (Glucagon Inj 1 Mg Vial) 1 mg IM Q15MIN PRN PRN Reason: BG <70, and no IV access Potassium Phosphate (Pot Phos 15 Mmol In Ns 250 Ml) 15 mmol in 250 mls @ 62.5 mls/hr IV Q4H [facility] Stop: 03/08/25 06:53 Last Admin: 03/07/25 23:51 Dose: 62.5 mls/hr Dextrose (D5w) 500 mls @ 125 mls/hr IV .Q4H [facility] Stop: 04/07/25 01:44 Last Admin: 03/08/25 01:48 Dose: 125 mls/hr Metoclopramide HCl (Metoclopramide Inj 5 Mg/Ml Vial 2 Ml) 10 mg IVP Q6H PRN; Protocol PRN Reason: NAUSEA OR VOMITING Stop: 04/06/25 22:47 Midazolam HCl (Midazolam Inj 1 Mg/Ml Vial 2 Ml) 1 mg IVP Q5MIN PRN PRN Reason: SEIZURES Stop: 03/12/25 22:56 Pantoprazole Sodium (Pantoprazole Inj 40 Mg Vial) 40 mg IVP QDAY [facility] Stop: 04/06/25 22:54 Last Admin: 03/07/25 23:51 Dose: 40 mg Discontinued Medications Dextrose (Dextrose 50%-Water Inj 50 Ml Syringe) 50 ml IVP X1 ONE Stop: 03/07/25 20:41 Last Admin: 03/07/25 20:42 Dose: 50 ml Flumazenil (Flumazenil Inj 0.1 Mg/Ml Vial 10 Ml) 0.2 mg IVP X1 ONE Stop: 03/07/25 21:39 Last Admin: 03/07/25 21:43 Dose: 0.2 mg Sodium Chloride (Ns) 1,000 mls @ 999 mls/hr IV .Q1H1M ONE Stop: 03/07/25 21:40 Last Infusion: 03/07/25 21:53 Dose: Infused Sodium Chloride (Ns) 1,000 mls @ 999 mls/hr IV .Q1H1M ONE Stop: 03/07/25 21:41 Last Infusion: 03/07/25 21:41 Dose: Infused Sodium Chloride (Ns) 1,000 mls @ 999 mls/hr IV .Q1H1M ONE Stop: 03/07/25 21:42 Last Infusion: 03/07/25 21:41 Dose: Infused Sodium Chloride (Ns) 1,000 mls @ 999 mls/hr IV .Q1H1M ONE Stop: 03/07/25 23:20 Last Infusion: 03/07/25 23:54 Dose: Infused Potassium Chloride (Kcl Ivpb) 10 meq in 100 mls @ 100 mls/hr IV Q1H [facility] Stop: 03/08/25 01:07 Last Admin: 03/08/25 01:06 Dose: 100 mls/hr Calcium Chloride 10 ml/ (Dextrose) 110 mls @ 110 mls/hr IV X1 ONE Stop: 03/08/25 01:26 Last Admin: 03/08/25 01:48 Dose: 110 mls/hr Dextrose/Sodium Chloride (D5-Ns) 500 mls @ 125 mls/hr IV .Q4H [facility] Stop: 04/07/25 00:59 Last Admin: 03/08/25 02:22 Dose: Not Given Levetiracetam (Levetiracetam Inj 100 Mg/Ml Vial 5ml) 2,000 mg IVP X1 ONE Stop: 03/07/25 20:42 Last Admin: 03/07/25 20:53 Dose: 2,000 mg Midazolam HCl (Midazolam Inj 1 Mg/Ml Vial 2 Ml) 1 mg IVP Q1HR PRN PRN Reason: SEIZURES Stop: 03/12/25 22:56 Naloxone HCl (Naloxone Inj 0.4 Mg/Ml Vial) 2 mg IV X1 ONE Stop: 03/07/25 20:42 Last Admin: 03/07/25 20:53 Dose: 2 mg Nicotine (Nicotine Patch 21 Mg/24 Hr Patch.Td24) 21 mg TOP X1 ONE Stop: 03/07/25 21:54 Last Admin: 03/07/25 22:20 Dose: 21 mg Ondansetron HCl (Ondansetron Inj 2 Mg/Ml Inj 2 Ml) 4 mg IVP X1 ONE; Protocol Stop: 03/07/25 20:41 Last Admin: 03/07/25 20:53 Dose: 4 mg Potassium Chloride (Potassium Chloride 10% 20 Meq/15 Ml Udc) 40 meq PO X1 ONE Stop: 03/07/25 21:34 Last Admin: 03/07/25 21:49 Dose: 40 meq Assessment & Plan Plan 19-year-old male with witnessed seizures, bradycardia, hypotension, and hypoglycemia. UTOX positive for benzodiazepines -Which was NEVER given by EMS nor at ED- but clinical picture (seizures, bradycardia, hypotension, and hypoglycemia,) raises suspicion for toxic ingestion ? possibly beta-abby or calcium channel abby overdose vs benzodiazepine contribution. Neuro #Seizure-like activity #Acute encephalopathy DDX: hypoglycemia induced seizure vs toxic agent in ingestion Patient came in initially with witnessed episodes of seizure-like activity by . Patient with his postictal upon arrival, on my assessment was able to provide some history and was AO x 3. 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 The patient responded to IV fluids without needing vasopressors at the time. #Bradycardia #Hypotension Patient had bradycardia in the 30s and hypotension on arrival. Bradyarrhythmia can lead to reduced cardiac output ? tissue hypoperfusion. Labs showed lactic acidosis and hypoglycemia, which can reflect impaired perfusion. Patient did not feel any palpitations or chest pain during this episode of seizure-like activity Patient's initial EKG showed sinus bradycardia. Patient did not get any atropine [place] or in the ED -cardiac monitore -Atropine 1 mg IV every 5 minutes as needed for symptomatic bradycardia with heart rate less than 40 -EKG in the a.m. -consider ECHO, bedside echo showed reduced cardiac contractility at that time Pulm No active disease GI #nausea-resolved hx of Intractable nausea vomiting Patient has been having intractable nausea and vomiting for the past year, has not been worked up as an outpatient as he had not seen a primary care physician Could consider possible gastritis versus PUD -Reglan as needed -Consider GI workup if symptoms do not improve (outpatient) Renal #Electrolyte imbalance #Hypokalemia #Hypophosphatemia #Lactic acidosis-resolved -monitore and replace PRN -avoid nephrotoxins -monitore urine output Endo #Hypoglycemia DDx toxin(BB)induced vs poor oral intake Patient's blood sugar was 52 upon arrival to the ED Patient got 1 amp of D50 in the ED Patient's blood sugar was 130 afterwards and then went down to 90 again -Hourly glucose checks ? 6?8 hrs, then trend after off dextrose -Replace electrolytes (K, phosphate) -D5W and patient will require blood glucose checks every hour -Glucagon 1 mg IV as needed -hypoglycemia protocol Hematology #leukocytosis most likely reactive -monitore ID no active disease Toxicology Psychiatry -Suicide precautions given high suspicion for ingestion despite patient denial -Follow poison control recommendations -Avoid further flumazenil given seizure risk -IV fluids as needed -NPO until mentation stabilizes -Poison Control (ongoing) -Suicidal precuation for risk assessment once medically stable Disposition:upgraded to ICU for further management of possible Beta-abby overdose. Diet: NPO GI prophylaxis: pronotix DVT prophylaxis: SCDS Code: Full Patient care was discussed with attending physician Dr. Jaime Kay MD PGY-3 I have carefully reviewed this document. Due to imperfections in the voice software, there could be grammatical errors including phonetic/typographic errors. This in no way compromises the medical care the patient is receiving Attending Provider Attestation/Addendum After examination of the patient and review of the clinical data I feel that this patient needs admission to the hospital for further treatment/evaluation. TOTAL CC TIME: 60 MIN TOTAL TIME: 60 Minutes of direct medical management and planning of care. I Yumiko Sandoval MD, attest that I was physically present for oliveira portions of evaluation, and examined patient, labs and imagings and plan of care were discussed with IM residents team, and I agree with the findings and plans documented above.
[2025-03-08] MEDS: POT PHOS 15 mMol in NS 250 ML 15 MMOL/250 ML BAG 62.5 MMOL IV (03:55)
[2025-03-08 05:26] LABS: Basophils # (Auto) 0.0 Thou/mm3 (0.0-0.2); Basophils % (Auto) 0 % (0-2.5); Eosinophils # (Auto) 0.1 Thou/mm3 (0.0-0.5); Eosinophils % (Auto) 1 % (0-10); Hematocrit 37.1 % (41.0-53.0); Hemoglobin 12.8 g/dL (13.5-16.0); Immature Granulocytes Auto 0.05 Thou/mm3 (0.00-0.00); Lymphocytes # (Auto) 1.8 Thou/mm3 (1.0-4.8); Lymphocytes % (Auto) 15 % (10-50); Mean Corpuscular HGB Conc 34.5 g/dl (31.0-37.0); Mean Corpuscular Hemoglobin 30.8 pg (25.0-35.0); Mean Corpuscular Volume 89 fL (80-100); Monocytes # (Auto) 0.9 Thou/mm3 (0.0-0.8); Monocytes % (Auto) 7 % (0-12); Neutrophils # (Auto) 9.5 Thou/mm3 (1.8-7.7); Neutrophils % (Auto) 77 % (37-80); Nucleated Red Blood Cell # 0.00 Thou/mm3 (0.00-0.00); Nucleated Red Blood Cell % 0 /100 WBC (0); Platelet Count 87 Thou/mm3 (140-440); RDW Standard Deviation 41.9 fL (35.1-43.9); Red Blood Count 4.15 Miln/mm3 (4.50-5.90); White Blood Count 12.3 Thou/mm3 (3.8-10.6)
[2025-03-08 06:05] LABS: Albumin, Serum 3.8 gm/dL (3.5-5.0); Albumin/Globulin Ratio 2.1 (1.2-2.2); Alkaline Phosphatase 62 U/L (46-116); Anion Gap 8 (7-16); Aspartate Amino Transferase 13 U/L (0-34); BUN/Creatinine Ratio 7 Ratio (12-20); Bilirubin,Total 1.2 mg/dL (0.3-1.2); Blood Urea Nitrogen < 5 mg/dL (9-23); Calcium 9.0 mg/dL (8.3-10.6); Calcium (Corrected) 9.2 mg/dL (8.5-10.1); Carbon Dioxide 25.6 mMol/L (20.0-31.0); Chloride 110 mMol/L (98-107); Creatinine (Component) 0.7 mg/dL (0.6-1.3); Estimated Creatinine Clearance 160.6 mL/min (>60); Globulin 1.8 gm/dL (2.3-3.5); Glucose 108 mg/dL (74-106); Magnesium 1.7 mg/dL (1.6-2.6); Osmolality,Calculated 285 (275-295); Phosphorous 4.7 mg/dL (2.4-5.1); Potassium 4.2 mMol/L (3.4-5.1); Sodium 144 mMol/L (136-145); Total Protein 5.6 gm/dL (5.7-8.2); eGFR > 60 See Note
[2025-03-08 06:13] LABS: Alanine Aminotransferase 9 U/L (10-49)
[2025-03-08] MEDS: DEXTROSE 5%-WATER 1,000 ML 125 ML IV (07:23)
[2025-03-08] MEDS: Magnesium Sulfate 2 GM Ivpb 2 GM/50 ML BAG IV (08:10)
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
[2025-03-08 14:00] LABS: Basophils # (Auto) 0.0 Thou/mm3 (0.0-0.2); Basophils % (Auto) 0 % (0-2.5); Eosinophils # (Auto) 0.0 Thou/mm3 (0.0-0.5); Eosinophils % (Auto) 0 % (0-10); Hematocrit 39.2 % (41.0-53.0); Hemoglobin 13.8 g/dL (13.5-16.0); Immature Granulocytes Auto 0.02 Thou/mm3 (0.00-0.00); Lymphocytes # (Auto) 1.8 Thou/mm3 (1.0-4.8); Lymphocytes % (Auto) 19 % (10-50); Mean Corpuscular HGB Conc 35.2 g/dl (31.0-37.0); Mean Corpuscular Hemoglobin 31.4 pg (25.0-35.0); Mean Corpuscular Volume 89 fL (80-100); Monocytes # (Auto) 0.6 Thou/mm3 (0.0-0.8); Monocytes % (Auto) 6 % (0-12); Neutrophils # (Auto) 7.0 Thou/mm3 (1.8-7.7); Neutrophils % (Auto) 75 % (37-80); Nucleated Red Blood Cell # 0.00 Thou/mm3 (0.00-0.00); Nucleated Red Blood Cell % 0 /100 WBC (0); Platelet Count 181 Thou/mm3 (140-440); RDW Standard Deviation 41.7 fL (35.1-43.9); Red Blood Count 4.39 Miln/mm3 (4.50-5.90); White Blood Count 9.5 Thou/mm3 (3.8-10.6)
--- NOTE | 2025-03-08 16:17 | PC.SS ---
19YO White male, reason for visit: SEIZURES. ? SS met with patient and his spouse Ann Baldwin ([phone]) at bedside to complete initial assessment. Role and purpose of today?s contact was explained. Patient confirmed his demographic information. Patient stated his Primary Medical Surrogate Decision Maker is his mother Vi Jackson [phone]. Prior to hospitalization, patient was independent with both ADL completion and ambulation as well. ?Pharmacy: [facility]. PCP: Dr. Sutton. Unable to recall last. appt. Discharge plan was discussed, patient requesting to return home when medically clear. Next of kin: Parent Vi Jackson [phone] Discharge plan: Home, spouse Ann to transport.
--- NOTE | 2025-03-08 22:57 | PC.NURSE ---
Verified with MD Espino the active suicide precautions orders. ordered to continue
[2025-03-09] VITALS: BP 120/62; PULSE 48; PULSE 53; RESP 18; TEMP 36.5; O2SAT 100
--- NOTE | 2025-03-09 | XR_ITS ---
Examination: MRI brain without intravenous contrast. Date and time of exam: March 09, 2025 1255 hours INDICATIONS: Seizures 03/07/2025 with confusion post seizures Technique: Multiple axial and sagittal images of the brain obtained. Siemens high-resolution 1.5 Alem short bore scanners utilized. Sagittal sections, T1-weighted, TR 500, TE 14, are performed. Axial sections proton-density and T2-weighted have been obtained. Inversion recovery axial images, TR 9, 260, TE 111, TI 2500. Diffusion weighted images, axial sections, TR 4800, TE 128, B value 1000 Axial sections, ADC map, TR 4800, TE 128 Findings: Enlargement of the sella turcica is not present. The optic chiasm and infundibular are not remarkable. Prepontine and interpeduncular cisterns are not enlarged. There is no localized enlargement of the medulla or arnie. Fourth ventricle and cerebellar tonsils appear normal in position. No subacute area of hemorrhage density is seen. Mass in the cerebellopontine angle region is not evident. Globes symmetrical. Orbital musculature including medial lateral rectus muscles do not exhibit abnormality. Diffusion-weighted images demonstrate no definite foci restricted diffusion. Increased white matter signal not seen Mass effect upon the ventricular system is not identified. Impression: Negative for acute hemorrhage mass effect or midline shift No definite foci of restricted diffusion No MR findings diagnostic for demyelinating disease
[2025-03-09 04:00] VITALS: BP 104/60; PULSE 43; RESP 16; TEMP 36.6; O2SAT 99
[2025-03-09 05:44] LABS: Basophils # (Auto) 0.0 Thou/mm3 (0.0-0.2); Basophils % (Auto) 1 % (0-2.5); Eosinophils # (Auto) 0.1 Thou/mm3 (0.0-0.5); Eosinophils % (Auto) 1 % (0-10); Hematocrit 39.3 % (41.0-53.0); Hemoglobin 13.7 g/dL (13.5-16.0); Immature Granulocytes Auto 0.01 Thou/mm3 (0.00-0.00); Lymphocytes # (Auto) 2.3 Thou/mm3 (1.0-4.8); Lymphocytes % (Auto) 30 % (10-50); Mean Corpuscular HGB Conc 34.9 g/dl (31.0-37.0); Mean Corpuscular Hemoglobin 31.2 pg (25.0-35.0); Mean Corpuscular Volume 90 fL (80-100); Monocytes # (Auto) 0.6 Thou/mm3 (0.0-0.8); Monocytes % (Auto) 8 % (0-12); Neutrophils # (Auto) 4.5 Thou/mm3 (1.8-7.7); Neutrophils % (Auto) 60 % (37-80); Nucleated Red Blood Cell # 0.00 Thou/mm3 (0.00-0.00); Nucleated Red Blood Cell % 0 /100 WBC (0); Platelet Count 171 Thou/mm3 (140-440); RDW Standard Deviation 41.8 fL (35.1-43.9); Red Blood Count 4.39 Miln/mm3 (4.50-5.90); White Blood Count 7.6 Thou/mm3 (3.8-10.6)
[2025-03-09 06:00] VITALS: BMI 20.9
[2025-03-09 06:20] LABS: Alanine Aminotransferase 8 U/L (10-49); Albumin, Serum 4.3 gm/dL (3.5-5.0); Albumin/Globulin Ratio 2.3 (1.2-2.2); Alkaline Phosphatase 65 U/L (46-116); Anion Gap 9 (7-16); Aspartate Amino Transferase 13 U/L (0-34); BUN/Creatinine Ratio 7 Ratio (12-20); Bilirubin,Total 1.6 mg/dL (0.3-1.2); Blood Urea Nitrogen < 5 mg/dL (9-23); Calcium 9.2 mg/dL (8.3-10.6); Calcium (Corrected) 9.2 mg/dL (8.5-10.1); Carbon Dioxide 27.6 mMol/L (20.0-31.0); Chloride 106 mMol/L (98-107); Creatinine (Component) 0.7 mg/dL (0.6-1.3); Estimated Creatinine Clearance 152.4 mL/min (>60); Globulin 1.9 gm/dL (2.3-3.5); Glucose 94 mg/dL (74-106); Magnesium 2.0 mg/dL (1.6-2.6); Osmolality,Calculated 282 (275-295); Phosphorous 4.0 mg/dL (2.4-5.1); Potassium 3.6 mMol/L (3.4-5.1); Sodium 143 mMol/L (136-145); Total Protein 6.2 gm/dL (5.7-8.2); eGFR > 60 See Note
[2025-03-09 07:44] VITALS: PULSE 55; RESP 18; RESP 98
[2025-03-09 08:00] VITALS: BP 109/57; PULSE 48; PULSE 61; RESP 16; TEMP 36.2; O2SAT 96
--- NOTE | 2025-03-09 09:49 | PD.RESPRO ---
Documentation for date of: 03/09/25 Subjective Subjective Interval history: Patient examined at bedside, MARYOE. It was brought to the attention of the care team that the patient did not receive midazolam by EMS. This was verified by the EMS crew who was reached out to by the night team. Additionally, the patient's family at bedside confirmed that he was no longer seizing by the time the EMS crew arrived. Regarding his Utox which was positive for benzos, patient endorses last taking xanax for anxiety 2 weeks ago. He does not have an official perscription for this, and states he obtains this from his father's medications. He is currently feeling better today and not as drowsy. Also of note, psychiatric hold was placed during admission in the ICU for possible intentional toxic ingestion during initial workup. Patient will need to be cleared by mental health social worker. Patient currently denies suicidal or homicidal ideation. EEG noted paroxysmal multifocal spike and wave discharges which is consistent with seizure disorder. Keppra initated, 500mg BID. Neurology consulted, agreed with above medication and dose, recommending close follow up, and recommending no driving. Exam Vital Signs Temp Pulse Resp BP Pulse Ox O2 Del Method O2 Flow Rate 97.2 F 61 16 109/57 L 96 Room Air 5 03/09/25 08:00 03/09/25 08:00 03/09/25 08:00 03/09/25 08:00 03/09/25 08:00 03/09/25 08:00 03/08/25 16:00 Objective Labs 03/09/25 05:09 03/09/25 05:09 Labs: Laboratory Results - last 24 hr 03/08/25 03/09/25 13:51 05:09 WBC 9.5 7.6 RBC 4.39 L 4.39 L Hgb 13.8 13.7 Hct 39.2 L 39.3 L MCV 89 90 MCH 31.4 31.2 MCHC 35.2 34.9 RDW Std Deviation 41.7 41.8 Plt Count 181 D 171 Neut % (Auto) 75 60 Lymph % (Auto) 19 30 Douglas % (Auto) 6 8 Eos % (Auto) 0 1 Baso % (Auto) 0 1 Neut # (Auto) 7.0 4.5 Lymph # (Auto) 1.8 2.3 Douglas # (Auto) 0.6 0.6 Eos # (Auto) 0.0 0.1 Baso # (Auto) 0.0 0.0 Immature Gran # (Auto) 0.02 H 0.01 H Absolute Nucleated RBC 0.00 0.00 Immature Gran % 0 0 Nucleated RBC % 0 0 Sodium 143 Potassium 3.6 D Chloride 106 Carbon Dioxide 27.6 Anion Gap 9 BUN < 5 L Creatinine 0.7 Estim Creat Clear Calc 152.4 eGFR > 60 BUN/Creatinine Ratio 7 L Glucose 94 Calculated Osmolality 282 Calcium 9.2 Corrected Calcium 9.2 Phosphorus 4.0 Magnesium 2.0 Total Bilirubin 1.6 H AST 13 ALT 8 L Alkaline Phosphatase 65 Total Protein 6.2 Albumin 4.3 D Globulin 1.9 L Albumin/Globulin Ratio 2.3 H ABG Interpretation ABG results: 03/07/25 20:42 VBG pH 7.34 VBG pCO2 40 VBG pO2 58 VBG Base Excess -4 L Quality Measures Quality Measures none Assessment & Plan Assessment Current Active Medications: Generic Name Dose Route Start Last Admin Trade Name Freq PRN Reason Stop Dose Admin Atropine Sulfate 1 mg 03/07/25 23:00 Atropine Sulf Inj 1 Mg/Ml Vial IVP 04/06/25 22:59 Q5MIN PRN Symptomatic bradycardia, HR<45 Dextrose 25 ml 03/08/25 03:14 Dextrose 50%-Water Inj 50 Ml Syringe IV 04/07/25 03:13 Q15MIN PRN BG 50-70 responsive npo pt Dextrose 50 ml 03/08/25 03:14 Dextrose 50%-Water Inj 50 Ml Syringe IV 04/07/25 03:13 Q15MIN PRN BG <50 OR BG <70 & pt unresponsive Glucagon 1 mg 03/08/25 02:37 03/08/25 03:09 Glucagon Inj 1 Mg Vial IVP 04/07/25 02:36 1 mg X1 PRN Administration HR<45 or BG<70 Glucagon 1 mg 03/08/25 03:14 Glucagon Inj 1 Mg Vial IM Q15MIN PRN BG <70, and no IV access Metoclopramide HCl 10 mg 03/07/25 22:48 Metoclopramide Inj 5 Mg/Ml Vial 2 Ml IVP 04/06/25 22:47 Q6H PRN NAUSEA OR VOMITING Protocol Midazolam HCl 1 mg 03/07/25 22:59 Midazolam Inj 1 Mg/Ml Vial 2 Ml IVP 03/12/25 22:56 Q5MIN PRN SEIZURES Pantoprazole Sodium 40 mg 03/07/25 22:55 03/09/25 09:27 Pantoprazole Inj 40 Mg Vial IVP 04/06/25 22:54 40 mg QDAY MARI Administration Plan This is a 19yom without significant past medical history who presented to the ED after witnessed seizure, admitted for hypoglycemia. #Seizure Disorder, unspecified This is a first time seizure for the patient, likely true seizure given post ictal period. Patient has had frequent vomiting and poor oral intake over the past year. Uses cannabis as appetite stimulant. Family history of seizure disorder in his half sister. Blood glucose 52 in the ED, CT head negative for bleed, mass, or stroke. Utox positive for cannabis and benzodiazepines which was NOT given by EMS. With family history of seizures, EEG is warranted to rule out congenital syndrome and MRI warranted to rule out structural causes. Differential includes secondary causes like electrolyte imbalance from poor oral intake or vomiting. EEG revealed paroxysmal multifocal spike and wave discharges which is consistent with seizure disorder. -Downgrade to tele 03/08 -Keppra 500 mg BID. - MRI pending. -Neurology consultation, recommending Keppra 500 mg BID, close follow up in clinic, and no driving. #Psychiatric Hold Patient placed on psychiatric hold for possible suicidal ideation from intentional toxic overdose. This hold was continued in the ICU on his first night. This was done due to the unclear nature of the precipitating cause of his seizure at the time of inital workup. Patient currently denies SI/HI. Although patient now has a clear cause of his seizures, it is prudent to rule out SI with mental health social worker. He has endorsed in the past difficulty with eating, anxiety, and sleeping. Patient is medically cleared. -Social work assessment/clearance #Hypoglycemia Blood glucose 52 in the ED, no history of diabetes, does not use insulin. Initially received D5w and hypoglycemia resolved. No longer on D5w and sugars have remained wnl. Glc 94 this am. - Continue monitoring blood glucose. - Encourage PO intake. #Sinus Bradycardia Ranging from the 40s to 50s on this visit. Has been asymptomatic. EKG showing sinus michelle without heart block. Prior hospitalization in 2018 noted heartrate in the high 40s/low 50s. This is likely baseline heart rate for the patient, less likely toxidrome given negative utox and lack of symptoms today. -Continue monitering on tele -PRN Atropine if symptomatic bradycardia. #GI Disturbance Persistent vomiting anorexia like symptoms. Patient uses cannabis to stimulate appetite. This is suspicious for cannabis hyperemesis syndrome. Appetite may be inadvertently suppressed from conditioning with chronic cannabis use. Has not been vomiting while admitted. - Monitor PO intake - PRN antiemetics - Counseled patient on cannabis hyperemesis syndrome. #Lactic Acidosis - resolved #Hypokalemia - resolved Health Maintenance: DVT prophylaxis: SCDs Diet: Regular David: No Lines: PIV CODE STATUS: Full code Disposition: Pending MRI. Patient's plan and care discussed with my attending, Dr. White and senior resident Dr. Peewee Vogel, DO PGY-1 ([facility] Resident)
[2025-03-09 12:00] VITALS: BP 111/57; PULSE 62; PULSE 74; RESP 18; TEMP 36.2; O2SAT 96
[2025-03-09] MEDS: levETIRAcetam LIQD 500 MG/5 ML UDC PO (12:37)
--- NOTE | 2025-03-09 14:06 | ESPR_ITS ---
Documentation for date of: 03/09/25 Subjective Subjective Interval history: Patient was not seen at the bedside as patient went for MRI brain without and with contrast. As EEG showed multifocal spike and wave discharges therefore recommended to continue Keppra 500 mg twice daily and no driving for a month. Brain MRI was unremarkable. Labs were unremarkable. No acute overnight events were reported. Exam Vital Signs Temp Pulse Resp BP Pulse Ox O2 Del Method O2 Flow Rate 97.2 F 61 16 109/57 L 96 Room Air 5 03/09/25 08:00 03/09/25 08:00 03/09/25 08:00 03/09/25 08:00 03/09/25 08:00 03/09/25 08:00 03/08/25 16:00 Narrative Exam GENERAL APPEARANCE: AxOx4, generally well-appearing male in no acute distress. HEENT: NC, AT. MMM. EOMI, clear conjunctiva, oropharynx clear. NECK: Supple without lymphadenopathy. No stiffness or restricted ROM. HEART: Regular rate and regular rhythm, normal S1/S2, no m/r/g LUNGS: CTAB, moving air well. No crackles or wheezes are heard. ABDOMEN: Soft, nontender, nondistended with good bowel sounds heard. BACK: No CVAT, no obvious deformity. EXTREMITIES: Without cyanosis, clubbing or edema. NEUROLOGICAL: Grossly nonfocal. Alert and oriented, moving all 4 extremities. CN not formally tested but appear grossly intact. Observed to ambulate with normal gait. Skin: Warm and dry without any rash. Psych: Appropriate mood and affect Objective Labs 03/09/25 05:09 03/09/25 05:09 Labs: Laboratory Results - last 24 hr 03/09/25 05:09 WBC 7.6 RBC 4.39 L Hgb 13.7 Hct 39.3 L MCV 90 MCH 31.2 MCHC 34.9 RDW Std Deviation 41.8 Plt Count 171 Neut % (Auto) 60 Lymph % (Auto) 30 [place] % (Auto) 8 Eos % (Auto) 1 Baso % (Auto) 1 Neut # (Auto) 4.5 Lymph # (Auto) 2.3 [place] # (Auto) 0.6 Eos # (Auto) 0.1 Baso # (Auto) 0.0 Immature Gran # (Auto) 0.01 H Absolute Nucleated RBC 0.00 Immature Gran % 0 Nucleated RBC % 0 Sodium 143 Potassium 3.6 D Chloride 106 Carbon Dioxide 27.6 Anion Gap 9 BUN < 5 L Creatinine 0.7 Estim Creat Clear Calc 152.4 eGFR > 60 BUN/Creatinine Ratio 7 L Glucose 94 Calculated Osmolality 282 Calcium 9.2 Corrected Calcium 9.2 Phosphorus 4.0 Magnesium 2.0 Total Bilirubin 1.6 H AST 13 ALT 8 L Alkaline Phosphatase 65 Total Protein 6.2 Albumin 4.3 D Globulin 1.9 L Albumin/Globulin Ratio 2.3 H ABG Interpretation ABG results: 03/07/25 20:42 VBG pH 7.34 VBG pCO2 40 VBG pO2 58 VBG Base Excess -4 L Quality Measures Quality Measures none Assessment & Plan Assessment Current Active Medications: Generic Name Dose Route Start Last Admin Trade Name Freq PRN Reason Stop Dose Admin Atropine Sulfate 1 mg 03/07/25 23:00 Atropine Sulf Inj 1 Mg/Ml Vial IVP 04/06/25 22:59 Q5MIN PRN Symptomatic bradycardia, HR<45 Dextrose 25 ml 03/08/25 03:14 Dextrose 50%-Water Inj 50 Ml Syringe IV 04/07/25 03:13 Q15MIN PRN BG 50-70 responsive npo pt Dextrose 50 ml 03/08/25 03:14 Dextrose 50%-Water Inj 50 Ml Syringe IV 04/07/25 03:13 Q15MIN PRN BG <50 OR BG <70 & pt unresponsive Glucagon 1 mg 03/08/25 02:37 03/08/25 03:09 Glucagon Inj 1 Mg Vial IVP 04/07/25 02:36 1 mg X1 PRN Administration HR<45 or BG<70 Glucagon 1 mg 03/08/25 03:14 Glucagon Inj 1 Mg Vial IM Q15MIN PRN BG <70, and no IV access Levetiracetam 500 mg 03/09/25 10:30 03/09/25 12:37 Levetiracetam Liqd 500 Mg/5 Ml Udc PO 04/08/25 10:29 500 mg BID MARI Administration Metoclopramide HCl 10 mg 03/07/25 22:48 Metoclopramide Inj 5 Mg/Ml Vial 2 Ml IVP 04/06/25 22:47 Q6H PRN NAUSEA OR VOMITING Protocol Midazolam HCl 1 mg 03/07/25 22:59 Midazolam Inj 1 Mg/Ml Vial 2 Ml IVP 03/12/25 22:56 Q5MIN PRN SEIZURES Pantoprazole Sodium 40 mg 03/07/25 22:55 03/09/25 09:27 Pantoprazole Inj 40 Mg Vial IVP 04/06/25 22:54 40 mg QDAY MARI Administration Plan This is a 19yom without significant past medical history who presented to the ED after witnessed seizure, admitted for hypoglycemia. #Seizure Disorder, unspecified This is a first time seizure for the patient, likely true seizure given post ictal period. Patient has had frequent vomiting and poor oral intake over the past year. Uses cannabis as appetite stimulant. Family history of seizure disorder in his half sister. Blood glucose 52 in the ED, CT head negative for bleed, mass, or stroke. Utox positive for cannabis and benzodiazepines which was NOT given by EMS. With family history of seizures, EEG is warranted to rule out congenital syndrome and MRI warranted to rule out structural causes. Differential includes secondary causes like electrolyte imbalance from poor oral intake or vomiting. EEG revealed paroxysmal multifocal spike and wave discharges which is consistent with seizure disorder. MRI showed no acute changes. Plan: -Continue Keppra 500 mg BID, with no driving and follow-up in the clinic #Psychiatric disturbance #Hypoglycemia #Sinus Bradycardia #GI Disturbance #Lactic Acidosis - resolved #Hypokalemia - resolved Rest of the management as per primary care team. Plan of care discussed with neurologist, Dr Libia Elias MD, PGY 3 Attending Provider Attestation/Addendum I have seen and examined the patient at the bedside and I agreed with the resident's findings, assessment and plan of care. Reassurance given to the patient regarding the negative MRI brain. EEG showed abnormal study with the epileptiform discharges consistent with seizures. Patient with a new onset seizures without any previous risk factors or secondary causes that we could based on the workup. However advised to continue with the Keppra 500 mg twice a day and advised no driving. Follow-up with me in 2 weeks
--- NOTE | 2025-03-09 14:06 | PC.CC ---
1306-ASW attempted to conduct an MH eval with the pt; however, pt was getting an MRI. ASW will assess pt when he is medically cleared and if cleared prior to 3pm. If not cleared by 3pm, pt will have to wait until the following day for ASW to complete the assessment because ASW is off at 3:30pm.
--- NOTE | 2025-03-09 15:13 | PC.CC ---
1425-Pt is a 19 yo male who was BIBA for seizures. As per attending provider, pt was given meds in the EMS that read flagged ER provider of possible drug overdose. Therefore, pt was placed on a 1799 while in the ER. However, the 1799 was placed again on the pt after being admitted. Consequently, the eval was recommended for this pt when ready for d/c. ASW Kristen King met with patient [id number] to complete assessment. ASW introduced self, role, and reason for assessment. ASW disclosed limits of confidentiality as well. Patient appeared alert and oriented to self, place, and situation. Patient was pleasant; his mood appeared calm; his behavior appeared in good spirits. Patient?s thought process was linear and organized. No signs of delusions, paranoid or V/h. Pt reported that he was BIBA because of seizures. However, he strongly denied SI/HI. Pt stated he has never had SI or self-harming thoughts. Pt stated he did not use drugs as an attempted OD. Pt reports he has strong family support at home and has never thought about ending his life. Pt reports he has his whole life to live for and has goals in life. Pt denies hx of MH diagnosis, does not take MH meds, nor does he see a therapist. Pt denies substance use/abuse and states he does not consume tobacco. ASW staffed the case with [facility], Director Sharath Rao and it was determined to provide pt with community resources including MH services. ASW informed attending Dr. Vides as Dr. White was not available. ASW informed chief nurse anesthetist Mandy of the plan. ASW provided community resources to the pt such as [facility], [facility] serivces and the [facility] resource guide and pt was accepting.
--- NOTE | 2025-03-09 15:25 | ESDS_ITS ---
<Statement entered by Karmen White MD - 03/12/25 17:41> I reviewed above note and agree with findings and plans. I have also personally examined the patient with medicine team and went over assessment and plan with medical team including international banker and resident physician. <Statement entered by Beatriz Vides MD - 03/09/25 20:39> Note reviewed, I agree with most of its contents and agree with the patient's care as documented by Dr. Vogel. Patient is 19 yr male with no significant PMH who was admitted on 03/07/2025 after coming to the ED for witnessed seizure. He was BIBA. Seizure was witnessed by his after she heard and found that patient hit his head. stated that patient has had 3 episodes of seizure-like activity that lasted a total of 3 to 4 minutes. He was in a postictal state upon arrival to the hospital. U tox was positive for benzodiazepines and marijuana. High suspicion that patient was using benzos for anxiety at home. There was concern for drug overdose therefore given flumazenil, glucagon, and naloxone. Received IV Keppra 2g. Vitals reflected bradycardia with rate in the 30s, hypoglycemic, lactic acidosis. Patient was upgraded to ICU for closer monitoring. EEG confirmed siezure activity, MRI was negative for acute findings. Patient was evaluated by social media content manager team to assess for suicidal ideation. He denied any suicidal thoughts or intent. Per neurolgy, started Keppra 500mg BID and must refrain from driving for one month. The patient's management plan was discussed with my attending physician Dr. White. Beatriz Vides, PGY-2 Planned Discharge Date 03/09/25 DS: Providers Provider Date of admission: 03/07/25 22:48 Primary care physician: Physician No Primary/Family Admitting Provider: Yumiko Sandoval MD Attending Provider on Admission: Karmen White MD Consults: 03/07/25 23:19 Consult to Neurology / Tele-Neurology Routine Comment: Consulting Provider: Kar Reza Attending Provider on DC: Karmen White MD Discharging Provider: Karmen White MD DS: Diagnosis Problem List Completed Was Problem List Reviewed/Reconciled?: Yes Hospital Course Hospital Course Hospital course: This is a 19 yom with no recorded medical history who was BIBA on 03/07 for witnessed seizure activity. Family members at bedside state he had around 3 seizures with the longest one being 3-4 minutes, and that he appeared to become hypoxic during this episode. Seizures had abated after EMS arrived and thus no midazolam was given en route. In the ED he was noted to be post-ictal, hypotensive, and bradycardic in the mid 30s. He was given 3L bolus, which improved his BP. Also given a loading dose of keppra. He was hypoglycemic, then given dextrose. His utox came back positive for benzodiazepines and was given flumazenil, glucagon, and naloxone for suspicion of toxic overdose and persistent bradycardia. Patient admitted to the ICU on 03/07, had an multiple electrolyte derrangements which were corrected and an elevated lactate which resolved with fluid administration. Patient also started on D5w drip for his hypoglycemia. Keppra was not continued due to first time seizure and pending neurology recommendations. Patient denied SI/HI at that time but suicide hold was placed due to concern of possible toxic overdose with betablocker or CCB given the per sistent bradycardia. Poison control was contacted and recommended trending glucose after discontinuation of the D5w which was done. Patient downgraded to telemetry on 03/08. Hypoglycemia did not recur. Patient remained somewhat drowsy. Continued to deny SI/HI. EEG was notable for paroxysmal multifocal spike and wave discharges, consistent with seizure disorder. Keppra was initiated in lieu of these findings. On 03/09, MRI of the head was negative for structural cause of seizure. His BP had improved but he remained bradycardic in the upper 40s. Chart review revealed he has had bradycardia to this degree in prior hospitalization in 2018. Patient was feeling a better and he was medically cleared for evaluation by social workers who subsequently lifted the suicide precautionary hold. Patient remained stable and was subsequently discharged in stable condition. Recommendations: Continue taking medication Keppra 500mg twice a day to prevent seizures. You must refrain from driving for one month. Follow up with neurologist in 1 week. Follow up with PCP in 1-2 weeks. Hospital Discharge: #Unspecified Seizure Disorder #Hypoglycemia #Sinus Bradycardia #GI Disturbance #Lactic Acidosis - resolved #Hypokalemia - resolved Patient's plan and care discussed with my attending, Dr White and my senior, Dr Vides. Mihcael Vogel DO PGY-1 ([facility] Resident) Time Spent with Patient Time attestation: Total time spent providing and/or coordinating discharge services: Time spent: Greater than 30 minutes Exam Vital Signs Temp Pulse Resp BP Pulse Ox O2 Del Method O2 Flow Rate 97.1 F 62 18 111/57 L 96 Room Air 5 03/09/25 12:00 03/09/25 12:00 03/09/25 12:00 03/09/25 12:00 03/09/25 12:00 03/09/25 12:00 03/08/25 16:00 Narrative Exam General: Young patient, more alert, walking around the room, HEENT: Mucosa moist. No oropharyngeal lesions, fair dentition. Pupils are equal and reactive to light bilaterally. Mild right beating nystagmus. Cardiovascular: Normal S1 and S2. Bradycardic. Regular rhythm. No murmur appreciated Respiratory: Clear to auscultation bilaterally without wheezes or crackles. Abdomen: Soft, nontender, not distended, Skin: Dry, no rashes or bruising or petechiae on examination. Musculoskeletal: No gross injuries. Able to move all 4 extremities. Non edematous lower extremities. Neuro: Alert and oriented x3. No focal neuro deficits. Psych: Normal affect and mood Discharge Plan Plan Patient Disposition: HOME (Self Care) Patient condition on transfer: Stable Prescriptions/Referrals Prescriptions/Med Rec: New levetiracetam [Keppra] 500 mg tablet 500 mg PO BID 30 Days Qty: 60 0RF Referrals: No Primary/Family,Physician [Primary Care Provider] Kar Reza MD [Physician, Neurology] Patient/Caregiver Discharge Instructions Other Discharge Activity Instructions:: Continue taking medication Keppra 500mg twice a day to prevent seizures. You must refrain from driving for one month. Follow up with neurologist in 1 week. Follow up with PCP in 1-2 weeks. Education Materials: ED Seizure New Onset Unknown ... Print Language: Wolof Stand Alone Forms: Joelle Award Info., Patient Portal Info Letter Discharge Order Discharge Orders: Discharge (Routine); Ordered 03/09/25 Ordered By: Beatriz Vides Quality Discharge Quality Measures VTE prophylaxis
[2025-03-09 16:00] VITALS: BP 134/59; PULSE 56; PULSE 68; RESP 21; TEMP 36.6; O2SAT 99
--- NOTE | 2025-03-09 16:35 | PC.SS ---
BUSINESS PRACTICES OFFICER informed by ED coordinator that patient has been cleared following mental health evaluation. Patient does not meet criteria for psychiatric hold. Patient to be discharged home.
== END 2025-03-09 17:28 | disposition home or self-care (01) | DRG 101 ==
LOC: SERX 23:28 → SERHOLD 23:28 → S2NX 23:41 → S2SX 03-08 03:26 → S2NX 03-08 10:48
PROVIDERS: Emergency Medicine; Admitting Provider Student in an Organized Health Care Education/Training Program; Visit Provider Internal Medicine
DX: G40.909 Epilepsy, unspecified, not intractable, without status epilepticus (principal); E87.20 Acidosis, unspecified; T42.4X1A Poisoning by benzodiazepines, accidental (unintentional), initial encounter; E87.6 Hypokalemia; E83.39 Other disorders of phosphorus metabolism; E16.2 Hypoglycemia, unspecified; D64.9 Anemia, unspecified; R00.1 Bradycardia, unspecified; F12.90 Cannabis use, unspecified, uncomplicated; D69.6 Thrombocytopenia, unspecified; F17.200 Nicotine dependence, unspecified, uncomplicated; I10 Essential (primary) hypertension; Z79.899 Other long term (current) drug therapy
CPT/HCPCS: 36415; 36600; 70450; 70551; 71045; 80053; 80307; 80320; 80329; 81001; 82010; 82248; 82550; 82803; 82947; 83605; 83735; 83880; 84100; 84145; 84443; 84484; 85025; 85379; 85610; 85730; 87400; 87811; 93005; 95816; 96127; 96361; 96365; 96366; 96375; 99285; J1611; J1953; J2312; J2405; J2470; J3475; J3480; J3490; J7030; J7060; J7070; J7999; A9270; G0480